=== PATIENT | female | born 1960 | race Caucasian/White ===

== ENCOUNTER → 2017-06-02 20:22 | Outpatient (CLI) | payer OTHER, SELFPAY ==
[2017-06-08 15:48] LABS: HPV Reflexed? NOT INDICATED
== END ==
PROVIDERS: Visit Provider Obstetrics & Gynecology
DX: Z12.4 Encounter for screening for malignant neoplasm of cervix (principal)
CPT/HCPCS: 88175; G0145

== ENCOUNTER → 2018-08-30 17:30 | Outpatient (CLI) | payer OTHER, SELFPAY ==
--- NOTE | 2018-08-30 16:30 | BI_ITS ---
MAMMOGRAPHY - BILATERAL SCREENING REASON FOR EXAM: Female, 58 years old. Routine annual screening examination. PERTINENT HISTORY: Non-contributory. TECHNIQUE: Digital bilateral breast aquiles (3D mammographic acquisition) in the CC and MLO projections. 2-D mediolateral oblique (MLO) and craniocaudad (CC) views of both breasts were obtained. CAD: Full Field Digital Mammography with Computer Added Detection was performed. COMPARISON: Comparison is made with prior study dated April 06, 2017 and January 24, 2016. FINDINGS: Breast Composition: The breasts are heterogeneously dense, which may obscure small masses. There are no dominant masses or suspicious calcifications. No other significant abnormalities are identified. There has been no significant change since the prior study. BI/SCREENING MAMM (CAD), BILAT IMPRESSION: Stable bilateral screening mammogram. Yearly follow-up mammogram recommended. (A) ASSESSMENT CATEGORY: BIRADS Category 1: Negative. A letter regarding these results will be sent to the patient by the facility within 30 days. Approximately 10% of breast cancers are not detected by mammography. A normal mammogram should not delay biopsy of a clinically suspicious abnormality. [id number] Electronically Signed: Chip Arechiga, at 8:33 EDT , Service support ,
== END ==
PROVIDERS: Referring Provider Obstetrics & Gynecology; Visit Provider Obstetrics & Gynecology
DX: Z12.31 Encounter for screening mammogram for malignant neoplasm of breast (principal)
CPT/HCPCS: 77063; 77067

== ENCOUNTER → 2018-08-31 17:20 | Outpatient (CLI) | payer OTHER, SELFPAY ==
[2018-09-05 14:38] LABS: HPV Reflexed? NOT INDICATED
== END ==
PROVIDERS: Referring Provider Obstetrics & Gynecology; Visit Provider Obstetrics & Gynecology
DX: N39.0 Urinary tract infection, site not specified (principal); Z12.4 Encounter for screening for malignant neoplasm of cervix
CPT/HCPCS: 87086; 87088; 88175; G0145

== ENCOUNTER → 2020-03-20 07:07 | Outpatient (CLI) | payer OTHER, SELFPAY ==
--- NOTE | 2020-03-19 16:23 | BI_ITS ---
MAMMOGRAPHY - BILATERAL SCREENING REASON FOR EXAM: Female, 60 years old. Routine annual screening examination. PERTINENT HISTORY: Breast survey exam TECHNIQUE: Digital bilateral breast mia (3D mammographic acquisition) in the CC and MLO projections. 2-D mediolateral oblique (MLO) and craniocaudad (CC) views of both breasts were obtained. CAD: Full Field Digital Mammography with Computer Added Detection was performed. COMPARISON: 08/30/2018 FINDINGS: Breast Composition: Dense There are no dominant masses or suspicious calcifications. No other significant abnormalities are identified. BI/SCREEN MAMM (CAD) W/MIA BILAT IMPRESSION: Stable bilateral screening mammogram. Yearly follow-up mammogram recommended. (A) ASSESSMENT CATEGORY: BIRADS Category 1: Negative. A letter regarding these results will be sent to the patient by the facility within 30 days. Approximately 10% of breast cancers are not detected by mammography. A normal mammogram should not delay biopsy of a clinically suspicious abnormality. [id number] Electronically Signed: Francisco Lomas, at 17:55 EST Tel , Service support ,
== END ==
PROVIDERS: Referring Provider Student in an Organized Health Care Education/Training Program; Visit Provider Student in an Organized Health Care Education/Training Program
DX: Z12.31 Encounter for screening mammogram for malignant neoplasm of breast (principal)
CPT/HCPCS: 77063; 77067

== ENCOUNTER → 2020-04-02 | Outpatient (CLI) | payer OTHER, SELFPAY ==
[2020-04-07 16:38] LABS: HPV APTIMA, High Risk Negative (Negative); HPV Reflexed? NOT INDICATED
== END | disposition home or self-care (01) ==
LOC: LABSPEC 04-03 08:44
PROVIDERS: Visit Provider Student in an Organized Health Care Education/Training Program
DX: Z12.4 Encounter for screening for malignant neoplasm of cervix (principal)
CPT/HCPCS: 88175; G0145

== ENCOUNTER 2020-06-27 15:35 | Outpatient (RCR) | payer OTHER, SELFPAY ==
[2020-06-28] MEDS: COVID-19 VACC, MRNA(PFIZER)/PF 30 MCG/0.3 ML SYRINGE IM (12:36)
[2020-07-18] MEDS: COVID-19 VACC, MRNA(PFIZER)/PF 30 MCG/0.3 ML SYRINGE IM (18:51)
== END 2020-10-01 23:59 ==
LOC: IMMUN 15:35
PROVIDERS: PCP Family Medicine; Referring Provider Family Medicine; Visit Provider Family Medicine
DX: Z23 Encounter for immunization (principal)
CPT/HCPCS: 0001A; 0002A; 91300

== ENCOUNTER 2021-06-30 16:01 | Outpatient (CLI) | payer OTHER, SELFPAY ==
--- NOTE | 2021-06-30 16:04 | BI_ITS ---
MAMMOGRAPHY - BILATERAL SCREENING REASON FOR EXAM: Female, 61 years old. Routine annual screening examination. PERTINENT HISTORY: Non-contributory. TECHNIQUE: Digital bilateral breast mia (3D mammographic acquisition) in the CC and MLO projections. 2-D mediolateral oblique (MLO) and craniocaudad (CC) views of both breasts were obtained. CAD: Full Field Digital Mammography with Computer Added Detection was performed. COMPARISON: Comparison is made with prior study dated number 2019 and 08/30/2018. FINDINGS: Breast Composition: The breasts are heterogeneously dense, which may obscure small masses. There are no dominant masses or suspicious calcifications. No other significant abnormalities are identified. There has been no significant change since the prior study. BI/SCRN MAMM (CAD)W/MIA BILAT IMPRESSION: Stable bilateral screening mammogram. Yearly follow-up mammogram recommended. (A) ASSESSMENT CATEGORY: BIRADS Category 1: Negative. A letter regarding these results will be sent to the patient by the facility within 30 days. Approximately 10% of breast cancers are not detected by mammography. A normal mammogram should not delay biopsy of a clinically suspicious abnormality. [id number] Electronically Signed: Chip Arechiga MD at 8:08 EST ,
== END 2021-06-30 23:59 | disposition home or self-care (01) ==
LOC: OPBI 16:02
PROVIDERS: Visit Provider Student in an Organized Health Care Education/Training Program
DX: Z12.31 Encounter for screening mammogram for malignant neoplasm of breast (principal)
CPT/HCPCS: 77063; 77067

== ENCOUNTER 2021-07-25 16:18 | Outpatient (CLI) | payer OTHER, SELFPAY ==
[2021-08-05 17:07] LABS: HPV APTIMA, High Risk Negative (Negative)
== END 2021-07-25 23:59 | disposition home or self-care (01) ==
LOC: LABSPEC 16:19
PROVIDERS: Visit Provider Student in an Organized Health Care Education/Training Program
DX: Z12.4 Encounter for screening for malignant neoplasm of cervix (principal)
CPT/HCPCS: 87624; 88175; G0145

== ENCOUNTER 2021-12-19 17:45 | Emergency (ER) | payer OTHER, SELFPAY ==
[2021-12-19 17:46] VITALS: BP 150/66; PULSE 87; RESP 16; TEMP 36.7; BMI 24.0
--- NOTE | 2021-12-19 19:58 | EDS_ITS ---
HPI History of Present Illness Chief Complaint: Headache Informant: patient Narrative Narrative: 61-year-old female arriving to the emergency department chief complaint of headache. She notes that symptoms began around 1500 hrs. She describes it as upper neck pain that wraps towards the front of her head. She states that when the pain comes it makes her weak all over. She denies any arm leg speech or vision symptoms. She states it is coming and going. She took Ecotrin before coming to emergency. She states that she was extremely and her blood pressure was up to the 150 systolic range. She denies any fever. She notes a history of fibromyalgia GERD and neck pain from prior injury. [facility] Medical History (Updated 12/19/21 @ 21:[address] Jhony Griffith DO) Fibromyalgia GERD (gastroesophageal reflux disease) Allergy/AdvReac Type Severity Reaction Status Date / Time amoxicillin Allergy Rash Verified 12/19/21 17:53 cefaclor [From Ceclor] Allergy Anaphylaxis Verified 12/19/21 17:53 cephalexin [From Keflex] Allergy Hives Verified 12/19/21 17:53 sertraline [From Zoloft] Allergy Rash Verified 12/19/21 17:53 acetaminophen [From Tavist] AdvReac PT UNSURE Verified 12/19/21 17:53 OF REACTION clemastine [From Tavist] AdvReac PT UNSURE Verified 12/19/21 17:53 OF REACTION pseudoephedrine [From Tavist] AdvReac PT UNSURE Verified 12/19/21 17:53 OF REACTION Social History (Updated 12/19/21 @ 20:[address] Jhony Griffith DO) current gender identity: female Smoking Status: Never smoker substance use type: does not use ROS ROS ED Constitutional Constitutional ED: Denies chills, fever(s) or weight loss Eyes Eyes: Denies change in vision or diplopia ENT ENT ED: Denies ear pain, rhinorrhea or sore throat Cardiovascular Cardiovascular: Denies chest pain, orthopnea, palpitations or racing heartbeat Respiratory/Chest Respiratory/Chest: Denies cough, dyspnea or orthopnea Gastrointestinal Gastrointestinal: Denies abdominal pain, diarrhea, nausea or vomiting Genitourinary Genitourinary ED: Denies dysuria, hematuria or urinary frequency Musculoskeletal Musculoskeletal: Reports neck pain; Denies arthralgias or myalgias Integumentary Denies abscess or rash Neurologic Neurologic: Reports headache(s) and weakness Psychiatric Psychiatric: Denies anxiety, depression, suicidal ideation or suicidal thoughts Endocrine Endocrinology: Denies polydipsia, polyphagia or polyuria Allergic/Immunologic Allergic/Immunologic ED: Denies mouth swelling, tongue swelling or urticaria EXAM Physical Exam Const Vital Signs: 12/19/21 17:46 12/19/21 17:46 12/19/21 20:24 Temperature 98.0 F 98.0 F 98.4 F Temperature Source Temporal Temporal Oral Pulse Rate 87 87 81 Respiratory Rate 16 16 Blood Pressure 150/66 H 150/66 H 142/73 H Blood Pressure Mean 94 94 96 Positive well nourished and well developed General Appearance ED: well developed HEENT Reports normocephalic, head/scalp atraumatic and moist mucous membranes Eyes PERRL and EOMs intact bilaterally Neck no lymphadenopathy, supple and no JVD Resp normal respiratory effort and clear to auscultation bilaterally Cardio regular rate, regular rhythm and no murmurs GI normal to inspection, nondistended, normoactive bowel sounds and non-tender Palpation: soft Back/Spine no CVA tenderness and normal ROM Extremity normal to inspection Extremity Narrative: NIH 0 General Extremety ED: Negative for edema General Extremity: Negative for edema Neuro oriented x3 and CN's II-XII intact bilaterally Sensorium / Orientation: alert Motor Exam: strength 5/5 throughout Psych mental status grossly normal Mood & Affect: Negative for depressed or tearful Skin no rashes or lesions noted and no wounds MDM MDM MDM Narrative Medical decision making narrative: CT the brain was obtained and is negative. She received a dose of Toradol. The description of the headache is more consistent with a tension headache. She notes that 2 days ago she was pushing family member on the swing and wonders if she did something with her upper back musculature and her fibromyalgia. At this point I think the patient can be discharged home. Return if worsening or concerns Radiography Diagnostic Testing: Clinical Impression(s) from Imaging Studies Brain CT 12/19/21 20:35 IMPRESSION: Negative Brain CT without contrast. Electronically Signed: Malachi Fontenot DO at 21:46 EDT , Discharge Plan Triage Chief Complaint: Headache ED Provider: Jhony Griffith Dx/Rx/DC Orders Clinical Impression: Acute tension headache Instructions: ED Headache, Tension Primary Care Provider: Abdirashid Ku Referrals: Abdirashid Ku DO [Primary Care Provider] - As Needed Disposition Disposition: Home, Self Care
[2021-12-19] MEDS: Ketorolac 60 MG/2 ML Vial IM (20:23)
[2021-12-19 20:24] VITALS: BP 142/73; PULSE 81; TEMP 36.9
--- NOTE | 2021-12-19 20:35 | CT_ITS ---
INDICATION: cephalgia EXAMINATION: CT BRAIN - CT Head or Brain W/O Contrast Injection TECHNIQUE: Multiple axial images were obtained of the head without intravenous contrast. A radiation dose optimization technique was used for this scan. IV Contrast dosage and agent: None. COMPARISON: None. FINDINGS: BRAIN PARENCHYMA: No intra- or extra-axial hemorrhage. No intracranial mass or mass effect. Bronson/white matter differentiation is maintained and there is no blurring of the basal ganglia. There is no hyperdense vessel. Posterior fossa structures are unremarkable. CSF SPACES: Appropriate for age. No hydrocephalus. Basal cisterns are patent. CALVARIUM, SKULL BASE, PARANASAL SINUSES AND MASTOID AIR CELLS: Clear. No discrete lytic or blastic abnormalities. ORBITS: Both globes, extraocular muscles, optic nerves and retrobulbar fat appear unremarkable. ASPECTS Score for Acute Strokes: 10 CT/Brain/Head without Contrast IMPRESSION: Negative Brain CT without contrast. Electronically Signed: Malachi Fontenot DO at 21:46 EDT ,
== END 2021-12-19 21:58 | disposition home or self-care (01) ==
PROVIDERS: Emergency Provider Emergency Medicine; PCP Student in an Organized Health Care Education/Training Program; Visit Provider Emergency Medicine
DX: G44.209 Tension-type headache, unspecified, not intractable (principal); M79.7 Fibromyalgia
CPT/HCPCS: 70450; 96372; 99281

== ENCOUNTER → 2022-05-11 | Outpatient (CLI) | payer OTHER, SELFPAY ==
--- NOTE | 2022-05-11 16:37 | STRESSREP ---
Stress Test Report Exercise myocardial perfusion stress test. 62-year-old lady with a history of chest pain Stress protocol: Resting EKG demonstrates normal sinus rhythm with a rate of 77 bpm resting blood pressure is 142/86 mmHg. The patient exercised according to the regular Akash protocol for a total duration of 8 minutes attaining a maximum heart rate of 160 bpm which was 101% of max impacted heart rate the maximum workload was 10.1 metabolic equivalents. At rest there were no ST or T wave changes noted suggest ischemia and at peak exercise upsloping ST changes only were noted which did not meet the criteria for ischemia. No clinical angina was noted the test was terminated due to the target heart rate being achieved. The peak blood pressure was 148/82 mmHg. Rate-pressure product was 22,000. Myocardial perfusion protocol. 11.3 mCi of technetium 99m sestamibi was injected at rest. The patient exercised according to regular Akash protocol for total duration of 8 minutes and at peak exercise 33.8 mCi of technetium 99m sestamibi was injected stress images were obtained stress and rest images were reconstructed in comparing the short axis vertical long and horizontal long axis. Gated images were also obtained. Perfusion SPECT analysis: Review of the stress images demonstrate normal uptake of tracer noted in all areas of the myocardium. The resting images similarly demonstrate normal uptake of tracer noted in all areas of the myocardium. No areas of reversibility are noted to suggest ischemia no previous infarct was noted. Gated SPECT analysis: The gated ejection fraction is 73%. Conclusion: Normal exercise myocardial perfusion stress test at a high workload. Preserved ejection fraction.
== END | disposition home or self-care (01) ==
LOC: CVS 06:34
PROVIDERS: PCP Student in an Organized Health Care Education/Training Program; Visit Provider Internal Medicine Cardiovascular Disease
DX: R07.89 Other chest pain (principal)
CPT/HCPCS: 78452; 93017; A9500; A4216

== ENCOUNTER → 2022-05-25 | Outpatient (CLI) | payer OTHER, SELFPAY ==
--- NOTE | 2022-05-25 13:18 | ECHOD_ITS ---
Reason For Study: MVP Procedure This was a 2D Doppler, Color Flow transthoracic echocardiogram. Exam performed in department. Left Ventricle Normal LV size. Left ventricular systolic function is normal. Stage 1 diastolic dysfunction. The estimated ejection fraction is 60 %. No regional wall motion abnormalities noted. Right Ventricle Normal RV size. Normal systolic function. Atria Normal left atrium. Normal right atrium. Mitral Valve Normal mitral valve. Mild (1+) eccentric mitral valve insufficiency. Tricuspid Valve Normal tricuspid valve. Mild (1+) tricuspid valve insufficiency. Pulmonary artery systolic pressure is 33 mmHg. Aortic Valve Trisinus/trileaflet aortic valve. Pulmonic Valve Normal pulmonic valve. Great Vessels Normal aortic root. The pulmonary artery is normal size. Normal inferior vena cava. Pericardium/Pleural No pericardial effusion. MMode/2D Measurements & Calculations LVIDd: 4.5 cm IVSd: 0.69 cm LVOT diam: 2.0 cm LVIDs: 3.1 cm LVPWd: 0.81 cm LVOT area: 3.1 cm2 RVDd: 2.8 cm FS: 30.3 % Ao root diam: 2.8 cm LAV(MOD-bp): 44.5 ml LVAd ap4: 24.1 cm2 LAV(MOD-bp) Indexed: 29.2 ml/m2 LVLd ap4: 6.8 cm LAV(MOD-sp2): 48.2 ml EDV(MOD-sp4): 70.1 ml LAV(MOD-sp4): 39.0 ml EDV(sp4-el): 73.0 ml LVAs ap4: 14.7 cm2 LVLs ap4: 5.6 cm ESV(MOD-sp4): 32.2 ml ESV(sp4-el): 32.8 ml EF(MOD-sp4): 54.1 % EF(sp4-el): 55.0 % LVAd ap2: 24.6 cm2 SV(MOD-sp4): 37.9 ml SV(MOD-sp2): 44.6 ml LVLd ap2: 7.1 cm EDV(MOD-sp2): 74.6 ml EDV(sp2-el): 72.0 ml LVAs ap2: 14.3 cm2 LVLs ap2: 5.9 cm ESV(MOD-sp2): 30.0 ml ESV(sp2-el): 29.5 ml EF(MOD-sp2): 59.8 % SV(sp4-el): 40.2 ml LA dimension(2D): 3.3 cm LA A4 area: 15.4 cm2 RA A4 area: 14.0 cm2 Time Measurements MV dec time: 0.15 sec Doppler Measurements & Calculations MV E max flora: 68.2 cm/sec MV V2 max: 92.1 cm/sec MV A max flora: 87.6 cm/sec MV max P.4 mmHg MV dec slope: 471.4 cm/sec2 MV E/A: 0.78 MV V2 mean: 56.2 cm/sec MV mean P.5 mmHg MV V2 VTI: 28.5 cm MVA(VTI): 2.7 cm2 Ao V2 max: 135.8 cm/sec LV V1 max: 108.3 cm/sec MR max flora: 622.1 cm/sec Ao max P.4 mmHg LV V1 max P.7 mmHg MR max P.8 mmHg Ao V2 mean: 98.4 cm/sec LV V1 mean P.5 mmHg MR mean flora: 478.4 cm/sec Ao mean P.3 mmHg LV V1 mean: 74.4 cm/sec MR mean P.3 mmHg Ao V2 VTI: 35.1 cm LV V1 VTI: 24.6 cm MR VTI: 234.8 cm AV (velocity ratio): 0.70 VANESSA(I,D): 2.2 cm2 VANESSA(V,D): 2.5 cm2 SV(LVOT): 76.7 ml PA V2 max: 95.6 cm/sec TR max flora: 273.8 cm/sec PA V2 mean: 67.3 cm/sec TR max P.0 mmHg ECHO/Echo Complete Interpretation Summary Normal LV size. Left ventricular systolic function is normal. Stage 1 diastolic dysfunction. Pulmonary artery systolic pressure is 33 mmHg. Mild (1+) eccentric mitral valve insufficiency. The estimated ejection fraction is 60 %. Ordering Physician: Sloan Palacios Referring Physician: Sloan Palacios Performed By: Samanta Shabazz RCS
== END | disposition home or self-care (01) ==
LOC: CVS 13:16
PROVIDERS: PCP Student in an Organized Health Care Education/Training Program; Referring Provider Internal Medicine Cardiovascular Disease; Visit Provider Internal Medicine Cardiovascular Disease
DX: R07.9 Chest pain, unspecified (principal); R00.2 Palpitations; I49.8 Other specified cardiac arrhythmias; I34.0 Nonrheumatic mitral (valve) insufficiency
CPT/HCPCS: 93306

== ENCOUNTER → 2022-12-23 | Outpatient (CLI) | payer OTHER, SELFPAY ==
[2022-12-23 15:57] LABS: Erythrocyte Sedimentation Rate 6 mm/hr (0-30)
[2022-12-23 15:59] LABS: Absolute Lymphocyte Count 2.15 X10^3/uL (0.83-4.51); Absolute Neutrophil Count 5.7 X10^3/uL (2.0-7.7); Basophil# 0.06 X10^3/uL; Basophil% 0.7 % (0-1); Eosinophil# 0.09 X10^3/uL; Lymphocyte # 2.15 X10^3/ul (0.83-4.51); Mean Corp Hgb Conc 34.2 g/dL (32-36); Mean Corpuscular Hgb 31.3 pg (27.0-32.0); Mean Corpuscular Volume 91.3 fL (81-99); Mean Platelet Vol. 9.8 fl (6.2-12.0); Monocyte# 0.55 X10^3/uL; Monocyte% 6.4 % (0-10); NRBC Flagged by Analyzer 0 % (0-5); Neutrophil # 5.71 X10^3/uL (2.7-7.7); Neutrophil % 66.6 % (47-70); Platelet Count 302 K/mm3 (150-450); RBC Distribution Width CV 12.6 % (11.6-14.6); Red Blood Count 4.16 M/mm3 (4.2-5.4); White Blood Count 8.6 K/mm3 (4.4-11.0)
[2022-12-23 16:22] LABS: AST(SGOT) 22 U/L (15-37); Alanine Aminotransfer ALT/SGPT 26 U/L (13-56); Albumin, Serum 4.1 g/dL (3.2-5.0); Alkaline Phosphatase 81 U/L (45-117); Anion Gap 6 (5-15); BUN 10 mg/dL (7-18); BUN/Creat Ratio 11.2 RATIO (10-20); CRP < 2.90 mg/L (0.0-3.0); Calcium,Total 9.4 mg/dL (8.5-10.1); Chloride 101 mmol/L (98-107); Creatinine, Serum 0.89 mg/dL (0.55-1.02); EST Glomerular Filtration Rate 68 mL/min (>60); Est Glom Filt Rate - Afr Amer 82 mL/min (>60); Glucose 87 mg/dL (74-106); LDH 180 U/L (84-246); Potassium 3.7 mmol/L (3.5-5.1); Protein, Total 8.1 g/dL (6.4-8.2); Sodium Level 135 mmol/L (136-145)
[2022-12-25 12:09] LABS: Anti-Centromere B Ab <0.2 AI (0.0-0.9); Anti-Chromatin <0.2 AI (0.0-0.9); Anti-Jo <0.2 AI (0.0-0.9); Anti-Scleroderma-70 AB <0.2 AI (0.0-0.9); Anti-dsDNA Ab <1 IU/mL (0-9); RNP Ab 0.5 AI (0.0-0.9); SJOGREN'S Anti-SS-A test < 0.2 AI (0.0-0.9); SJOGREN'S Anti-SS-B test < 0.2 AI (0.0-0.9); Smith Ab <0.2 AI (0.0-0.9)
[2022-12-28 06:06] LABS: Albumin 4.2 g/dL (2.9-4.4); Alpha-1-Globulins 0.2 g/dL (0.0-0.4); Alpha-2-Globulins 0.8 g/dL (0.4-1.0); Cytoplasmic Ab (C-ANCA) <1:20 titer (Neg:<1:20); Endomysial Antibody IgA Negative (Negative); Gamma Globulin 1.3 g/dL (0.4-1.8); Immunoglobulin A 63 mg/dL (87-352); Immunoglobulin E 21 IU/mL (6-495); Immunoglobulin G 1220 mg/dL (586-1602); Immunoglobulin M 67 mg/dL (26-217); PROEL- TOTAL PROTEIN 7.6 g/dL (6.0-8.5); Perinuclear Ab (P-ANCA) <1:20 titer (Neg:<1:20); t-Transglutaminase IgA <2 U/mL (0-3)
== END | disposition home or self-care (01) ==
LOC: LAB 14:45
PROVIDERS: PCP Student in an Organized Health Care Education/Training Program; Referring Provider Internal Medicine Gastroenterology; Visit Provider Internal Medicine Gastroenterology
DX: R10.9 Unspecified abdominal pain (principal)
CPT/HCPCS: 36415; 80053; 82784; 82785; 83516; 83615; 84165; 85025; 85652; 86140; 86225; 86235; 86255; 86256; 86334

== ENCOUNTER 2023-02-11 08:54 | Day surgery (SDC) | payer OTHER, SELFPAY ==
[2023-02-11] VITALS (7 sets, daily range): BP systolic 106–163; BP diastolic 61–95; PULSE 70–88; RESP 14–16; TEMP 36.2–37.7; O2SAT 100; BMI 25.8
[2023-02-11] MEDS: Lactated Ringers 1,000 ML 15 ML IV (09:29)
--- NOTE | 2023-02-11 09:54 | PCM.HP.BLA ---
History and Physical Date of Admission: 02/11/23 62 F who presents to the office today for PMH fibromyalgia, focal dystonia, heart murmur, insomnia, PAC, anxiety.? PSH two c-sections. *BGI established 12.17. with GERD and chest pain for many years; esomeprazole 40mg QD helpful but has breakthrough symptoms particularly triggered by stress. Constipation with abdominal pain/bloating are also a difficulty. Reports that she has an abnormal anatomy because ?everything is squished and tight? and that her gallbladder in not in the correct location. Recommend EGD and colonoscopy. ? Biochemical CBC, ESR, CMP, LDH, CRP, CAREY comp, GAME, ANCA, ALTHEA, celiac not performed. ? Stool calprotectin, lactoferrin not performed. ? EGD and colonoscopy scheduled then cancelled without being rescheduled. OV 12.23.22 continues to have a lot of bloating and gas to varying severity. She admits to eating a lot and too quickly. GasX, beano ineffective. Unsure of last screening colonoscopy. ROS Const Constitutional: No anorexia, fatigue, fever(s), weight change or sleep problems Eyes Eyes: No change in vision ENT ENT: No abnormal hearing, difficulty swallowing, mouth lesions, tongue swelling or throat swelling Resp Respiratory: No cough or shortness of breath Cardio Cardiology: No chest pain at rest, chest pain with exertion, shortness of breath or dyspnea on exertion Gastro GI: No difficulty swallowing Genitourinary-Female: No difficulty urinating or burning urination Musc Musculoskeletal: No joint pain, joint swelling, muscle weakness or decreased muscle mass Skin Skin: No hair loss in leg, yellowing of the eye, itchy eyes, rash, skin ulcer or skin swelling Neuro Neurology: No abnormal hearing, abnormal movements, confusion, unsteady gait/balance or memory loss Psych Psychiatric: No anxiety, No confusion and No memory loss Endo Endocrine: No fatigue or weight change Aller/Imm Allergy/Immunologic: No itchy eyes, throat swelling or tongue swelling Yasir/Lymp Hematologic/Lymphatic: No easy bleeding, easy bruising or enlarged lymph nodes Exam Const General: cooperative and comfortable Nutritional Appearance: average body habitus and well nourished [facility] Head: normal to inspection Ears: hearing grossly normal bilaterally Nose: external nose normal Face and sinus: normal facial exam Mouth: oral mucosae normal Throat: posterior oropharynx normal Eyes General: appearance normal, both eyes and all related structures Neck Neck: normal visual inspection Chest Chest palpation & inspection: normal inspection of the chest and normal palpation of entire chest wall Resp Effort & Inspection: normal respiratory effort Auscultation: Bilateral: Clear to Auscultation Cardio Palpation: normal PMI Rate: regular rate Rhythm: regular rhythm GI Inspection: normal to inspection Auscultation: normal bowel sounds Percussion: normal to percussion Palpation: no hepatosplenomegaly Skin General: no rashes or lesions noted Neuro General: patient alert Extrem General: normal to inspection Psych Affect: normal affect Quality Reporting Tobacco Screening ([facility] 138) Smoking Status: Never smoker Assessment and Plan Assessment and Plan (1) GERD (gastroesophageal reflux disease): Status: Inactive Qualifiers: Esophagitis presence: with esophagitis Esophagitis bleeding: without hemorrhage Qualified Code(s): K21.00 - Gastro-esophageal reflux disease with esophagitis, without bleeding Comment: PER PT NOT CONTROLLED ON MEDS Plan: Gastroesophageal reflux disease controlled on Nexium therapy. She should undergo an upper endoscopy for evaluation of Mendoza's esophagus, structural changes and functional changes of the upper GI tract. (2) Abdominal pain: Status: Inactive Qualifiers: Abdominal location: generalized Qualified Code(s): R10.84 - Generalized abdominal pain Plan: . Abdominal pain thought to be secondary to IBS. We will evaluate her upper GI tract and lower GI tract and possibly to small bowel capsule endoscopy. We also do biochemical analysis and stool testing. (3) Screening for colon cancer: Status: Inactive Plan: She will undergo screening colonoscopy. We will also evaluate her lower GI tract to look for any mucosal changes would lead to the diagnosis why she has abdominal pain and bloating. She was explained alternatives, risk and benefits include not withstanding bleeding, infection, sepsis, perforation, need for emergent surgery . She have an ASA of 1. Coding I have examined the patient and the H&P has been reviewed. There are no clinical changes since date of exam.
--- NOTE | 2023-02-11 10:00 | EGD_PTH ---
PATIENT: JASS WHITING LOC: EN U#:[id number] AGE/SX: 63/F ROOM: RE02/11/[address]: Dr. Rico Mckeon DO : 1960 BED: DIS: 02/11/2023 SPEC #: [id number] RECD: 02/11/23 12:10 STATUS: LISA REQ #: [id number] YAMINI: 02/11/23 10:[address]: Rico Mckeon DEPT: SURGICAL PATHOLOGY RECD BY: Delfina Dimas ENTERED: 02/11/23 12:58 SP TYPE: EGD BIOPSY OTHR DR: Dr. Abdirashid Ku DO Tissues: A - Duodenum, NOS B - Gastric mucous membrane C - Esophagus, NOS Procedures: Special Stain Group II Surgery Specimen Level IV Alcian Blue/PAS (control) HEADER OPERATION: Colonoscopy, EGD with biopsy PRE-OP DIAGNOSIS: GERD, abdominal pain TISSUE SUBMITTED: A - Duodenum biopsy, B - Gastric body biopsy, C - Distal esophagus biopsy MICROSCOPIC DIAGNOSIS A. Duodenum, biopsy: Fragments of duodenal mucosa with gastric metaplasia and chronic inflammation. B. Gastric body, biopsy: Mild gastritis. See microscopic description and comment. C. Distal esophagus, biopsy: Fragments of gastric mucosa with chronic inflammation. Intestinal metaplasia (goblet cell metaplasia) not identified. See comment. SJ:nitin 02/12/2023 COMMENT B. The results of immunohistochemistry for Helicobacter pylori will be reported separately ([id number]). C. Alcian blue/PAS stain with matched control is used in the evaluation of the specimen. MICROSCOPIC DESCRIPTION Slides are reviewed. B. The specimen shows fragments of gastric mucosa with chronic inflammatory cell infiltrates in the lamina propria consisting of lymphocytes and plasma cells, consistent with mild chronic gastritis. GROSS DESCRIPTION A - Received in fixative is one container labeled with the patient's name and designated duodenum biopsy. The specimen consists of multiple irregular fragments of light mackenzie soft tissue that in aggregate measure 1.5 x 0.3 x 0.1 cm. The specimen is totally submitted in one cassette. B - Received in fixative is one container labeled with the patient's name and designated gastric body. The specimen consists of two irregular fragments of light mackenzie soft tissue that in aggregate measure 0.5 x 0.3 x 0.1 cm. The specimen is totally submitted in one cassette. C - Received in fixative is one container labeled with the patient's name and designated distal esophagus biopsy. The specimen consists of two irregular fragments of light mackenzie soft tissue that in aggregate measure 0.5 x 0.3 x 0.1 cm. The specimen is totally submitted in one cassette. / AM:nitin 02/11/2023 TC:3 CPT: 52752 x3, 12706
--- NOTE | 2023-02-11 10:00 | IMM_PTH ---
PATIENT: JASS WHITING LOC: EN U#:[id number] AGE/SX: 63/F ROOM: RE02/11/[address]: Dr. Rico Mckeon DO : 1960 BED: DIS: 02/11/2023 SPEC #: [id number] RECD: 02/11/23 13:30 STATUS: LISA REQ #: [id number] YAMINI: 02/11/23 10:[address]: Rico Mckeon DEPT: IMMUNOHISTOCHEMISTRY RECD BY: Rosalia Rios ENTERED: 02/11/23 13:30 SP TYPE: IMMUNO OTHR DR: Dr. Abdirashid Ku DO Tissues: B - Stomach, NOS Procedures: H Pylori (initial) PHYSICIAN & INSTITUTION [place] [id number] SPECIMEN INFORMATION: Tissue Source: B - Gastric body Clinical Info: GERD, abdominal pain Specimen Number: [id number] CPT code: 33939 METHODOLOGY: Deparaffinized sections of prefer/formalin-fixed tissue or PAP/DQ stained slides are incubated with monoclonal/polyclonal antibodies/oligonucleotide probes. Localization is made via biotin free immunoperoxidase method. Appropriate controls are performed and reacted as expected. Results on target cell population are indicated in the following table: RESULTS: ANTIBODY / CLONE RESULT Block B H Pylori (polyclonal) negative These tests were developed and their performance characteristics determined by [facility]. They may not have been cleared or approved by the U.S. Food and Drug Administration. The FDA has determined that such clearance or approval is not necessary. The above immunohistochemical/dualISH markers are ordered and reviewed by the Pathologist. INTERPRETATION: B. Gastric body, biopsy: Negative for Helicobacter pylori organisms. SJ:nitin 02/12/2023
--- NOTE | 2023-02-11 10:31 | OP.EGD_ITS ---
Patient Name: Jocelyn Rasmussen Procedure Date: 02/11/2023 9:52 AM Date of : 1960 Age: 63 Procedure: Upper GI endoscopy Indications: Epigastric abdominal pain, Functional Dyspepsia, Heartburn Providers: Rico Mckeon DO Referring MD: Rico Mckeon DO Medicines: Monitored Anesthesia Care Patient Profile: This is a 63 year old female. Refer to note in patient chart for documentation of history and physical. Patient has symptoms of chronic dyspepsia and chronic heartburn. Complications: No immediate complications. Procedure: Pre-Anesthesia Assessment: - Prior to the procedure, a History and Physical was performed, and patient medications and allergies were reviewed. The patient is competent. The risks and benefits of the procedure and the sedation options and risks were discussed with the patient. All questions were answered and informed consent was obtained. Patient identification and proposed procedure were verified by the physician in the pre-procedure area. Mental Status Examination: alert and oriented. Airway Examination: normal oropharyngeal airway and neck mobility. Respiratory Examination: clear to auscultation. CV Examination: normal. Prophylactic Antibiotics: The patient does not require prophylactic antibiotics. Prior Anticoagulants: The patient has taken no anticoagulant or antiplatelet agents. ASA Grade Assessment: II - A patient with mild systemic disease. After reviewing the risks and benefits, the patient was deemed in satisfactory condition to undergo the procedure. The anesthesia plan was to use monitored anesthesia care (MAC). Immediately prior to administration of medications, the patient was re-assessed for adequacy to receive sedatives. The heart rate, respiratory rate, oxygen saturations, blood pressure, adequacy of pulmonary ventilation, and response to care were monitored throughout the procedure. The physical status of the patient was re-assessed after the procedure. After obtaining informed consent, the endoscope was passed under direct vision. Throughout the procedure, the patient's blood pressure, pulse, and oxygen saturations were monitored continuously. The Colonoscope was introduced through the mouth, and advanced to the second part of duodenum. The upper GI endoscopy was accomplished without difficulty. The patient tolerated the procedure well. Scope In: 10:04:18 AM Scope Out: 10:08:12 AM Total Procedure Duration Time 0 hours 3 minutes 54 seconds Findings: The Z-line was irregular and was found 39 cm from the incisors. Biopsies were taken with a cold forceps for histology. Verification of patient identification for the specimen was done. Estimated blood loss was minimal. Patchy mildly erythematous mucosa without bleeding was found in the gastric antrum. Biopsies were taken with a cold forceps for histology. Verification of patient identification for the specimen was done. Biopsies were taken with a cold forceps for Helicobacter pylori testing. Verification of patient identification for the specimen was done. Estimated blood loss was minimal. Patchy mildly erythematous mucosa without active bleeding and with no stigmata of bleeding was found in the duodenal bulb. Biopsies were taken with a cold forceps for histology. Verification of patient identification for the specimen was done. Estimated blood loss was minimal. One 3 mm sessile polyp with no bleeding and no stigmata of recent bleeding was found in the gastric body. Impression: - Z-line irregular, 39 cm from the incisors. Biopsied. - Erythematous mucosa in the antrum. Biopsied. - Erythematous duodenopathy. Biopsied. Recommendation: - Discharge patient to home. - Resume previous diet. - Continue present medications. - Await pathology results. Procedure Code(s): --- Professional --- 00984, Esophagogastroduodenoscopy, flexible, transoral; with biopsy, single or multiple CPT copyright 2021 [employer]. All rights reserved. The codes documented in this report are preliminary and upon front end developer javascript html css review may be revised to meet current compliance requirements. Rico Mckeon DO 02/11/2023 10:31:28 AM This report has been signed electronically. Number of Addenda: 0 Note Initiated On: 02/11/2023 9:52 AM
--- NOTE | 2023-02-11 10:31 | OP.CCLET_ITS ---
02/11/2023 Abdirashid Ku Do Re : Upper GI endoscopy procedure for Jocelyn Rasmussen [place] This procedure was performed on January. My impressions and recommendations are as follows: Impressions : - Z-line irregular, 39 cm from the incisors. Biopsied. - Erythematous mucosa in the antrum. Biopsied. - Erythematous duodenopathy. Biopsied. Recommendations : - Discharge patient to home. - Resume previous diet. - Continue present medications. - Await pathology results. My findings are described in the full procedure note, which is enclosed. If I can be of further assistance, please feel free to contact me at . Sincerely, Rico Mckeon DO 02/11/2023 10:31:28 AM This report has been signed electronically.
--- NOTE | 2023-02-11 10:35 | OP.CCLET_ITS ---
02/11/2023 Abdirashid Ku Do Re : Colonoscopy procedure for Jocelyn Rasmussen [place] This procedure was performed on January. My impressions and recommendations are as follows: Impressions : - Diverticulosis in the recto-sigmoid colon, in the sigmoid colon and in the transverse colon. - The examination was otherwise normal on direct and retroflexion views. - No specimens collected. Recommendations : - Discharge patient to home. - Resume previous diet. - Continue present medications. - Repeat colonoscopy in 10 years for screening purposes. My findings are described in the full procedure note, which is enclosed. If I can be of further assistance, please feel free to contact me at . Sincerely, Rico Mckeon, 02/11/2023 10:34:48 AM This report has been signed electronically.
--- NOTE | 2023-02-11 10:35 | OP.COLON_ITS ---
Patient Name: Jocelyn Rasmussen Procedure Date: 02/11/2023 10:08 AM Date of : 1960 Age: 63 Procedure: Colonoscopy Indications: Screening for colorectal malignant neoplasm Providers: Rico Mckeon DO Referring MD: Rico Mckeon DO Medicines: Monitored Anesthesia Care Patient Profile: This is a 63 year old female. Refer to note in patient chart for documentation of history and physical. Patient has symptoms of chronic dyspepsia and chronic heartburn. Last Colonoscopy: more than 10 years ago. Complications: No immediate complications. Procedure: Pre-Anesthesia Assessment: - Prior to the procedure, a History and Physical was performed, and patient medications and allergies were reviewed. The patient is competent. The risks and benefits of the procedure and the sedation options and risks were discussed with the patient. All questions were answered and informed consent was obtained. Patient identification and proposed procedure were verified by the physician in the pre-procedure area. Mental Status Examination: alert and oriented. Airway Examination: normal oropharyngeal airway and neck mobility. Respiratory Examination: clear to auscultation. CV Examination: normal. Prophylactic Antibiotics: The patient does not require prophylactic antibiotics. Prior Anticoagulants: The patient has taken no anticoagulant or antiplatelet agents. ASA Grade Assessment: II - A patient with mild systemic disease. After reviewing the risks and benefits, the patient was deemed in satisfactory condition to undergo the procedure. The anesthesia plan was to use monitored anesthesia care (MAC). Immediately prior to administration of medications, the patient was re-assessed for adequacy to receive sedatives. The heart rate, respiratory rate, oxygen saturations, blood pressure, adequacy of pulmonary ventilation, and response to care were monitored throughout the procedure. The physical status of the patient was re-assessed after the procedure. After I obtained informed consent, the scope was passed under direct vision. Throughout the procedure, the patient's blood pressure, pulse, and oxygen saturations were monitored continuously. The Colonoscope was introduced through the anus and advanced to the cecum, identified by appendiceal orifice and ileocecal valve. The colonoscopy was performed without difficulty. The patient tolerated the procedure well. The quality of the bowel preparation was good. The terminal ileum, ileocecal valve, appendiceal orifice, and rectum were photographed. Scope In: 10:10:27 AM Scope Withdrawal Time 0 hours 6 minutes 54 seconds Scope Out: 10:23:56 AM Total Procedure Duration Time 0 hours 13 minutes 29 seconds Findings: The perianal and digital rectal examinations were normal. Scattered small-mouthed diverticula were found in the recto-sigmoid colon, sigmoid colon and transverse colon. The exam was otherwise without abnormality on direct and retroflexion views. Hemorrhoids were found on perianal exam. Impression: - Diverticulosis in the recto-sigmoid colon, in the sigmoid colon and in the transverse colon. - The examination was otherwise normal on direct and retroflexion views. - No specimens collected. Recommendation: - Discharge patient to home. - Resume previous diet. - Continue present medications. - Repeat colonoscopy in 10 years for screening purposes. Procedure Code(s): --- Professional --- G0121, Colorectal cancer screening; colonoscopy on individual not meeting criteria for high risk CPT copyright 2021 [employer]. All rights reserved. The codes documented in this report are preliminary and upon security representative review may be revised to meet current compliance requirements. Rico Mckeon DO 02/11/2023 10:34:48 AM This report has been signed electronically. Number of Addenda: 0 Note Initiated On: 02/11/2023 10:08 AM
[2023-02-16 16:09] LABS: Calprotectin, Stool 42 ug/g (0-120)
== END 2023-02-11 11:49 | disposition home or self-care (01) ==
LOC: EN 08:58 → AC 09:00
PROVIDERS: PCP Student in an Organized Health Care Education/Training Program; Referring Provider Student in an Organized Health Care Education/Training Program; Visit Provider Internal Medicine Gastroenterology
PROC: 0DJD8ZZ Inspection of Lower Intestinal Tract, Via Natural or Artificial Opening Endoscopic (ICD-10-PCS; CPT 45378; principal; 2023-02-11 09:55)
DX: Z12.11 Encounter for screening for malignant neoplasm of colon (principal); K64.9 Unspecified hemorrhoids; K57.30 Diverticulosis of large intestine without perforation or abscess without bleeding; K29.70 Gastritis, unspecified, without bleeding; K31.A0 Gastric intestinal metaplasia, unspecified; K21.00 Gastro-esophageal reflux disease with esophagitis, without bleeding; R03.0 Elevated blood-pressure reading, without diagnosis of hypertension; Z79.899 Other long term (current) drug therapy
CPT/HCPCS: 45378; 43239; 83630; 83993; 88305; 88313; 88342; J7120

== ENCOUNTER → 2023-08-17 | Outpatient (CLI) | payer BC, SELFPAY ==
--- NOTE | 2023-08-17 16:30 | BI_ITS ---
MAMMOGRAPHY - BILATERAL SCREENING REASON FOR EXAM: Female, 63 years old. Routine annual screening examination. PERTINENT HISTORY: Non-contributory. TECHNIQUE: Digital bilateral breast mia (3D mammographic acquisition) in the CC and MLO projections. 2-D mediolateral oblique (MLO) and craniocaudad (CC) views of both breasts were obtained. CAD: Full Field Digital Mammography with Computer Added Detection was performed. COMPARISON: Comparison is made with prior study dated June 30, 2021 and March 19, 2020. FINDINGS: Breast Composition: The breasts are heterogeneously dense, which may obscure small masses. There are no dominant masses or suspicious calcifications. No other significant abnormalities are identified. There has been no significant change since the prior study. BI/SCRN MAMM (CAD)W/MIA BILAT IMPRESSION: Stable bilateral screening mammogram. Yearly follow-up mammogram recommended. (A) ASSESSMENT CATEGORY: BIRADS Category 1: Negative. A letter regarding these results will be sent to the patient by the facility within 30 days. Approximately 10% of breast cancers are not detected by mammography. A normal mammogram should not delay biopsy of a clinically suspicious abnormality. [id number] Electronically Signed: Chip Arechiga MD at 8:26 EDT ,
== END | disposition home or self-care (01) ==
LOC: OPBI 08-18 07:04
PROVIDERS: PCP Student in an Organized Health Care Education/Training Program; Referring Provider Nurse Practitioner Women's Health; Visit Provider Nurse Practitioner Women's Health
DX: Z12.31 Encounter for screening mammogram for malignant neoplasm of breast (principal)
CPT/HCPCS: 77063; 77067

== ENCOUNTER → 2023-09-21 | Outpatient (CLI) | payer BC, SELFPAY | END | disposition home or self-care (01) | LOC: PSN 14:17 | PROVIDERS: PCP Student in an Organized Health Care Education/Training Program; Referring Provider Internal Medicine Cardiovascular Disease; Visit Provider Internal Medicine Cardiovascular Disease | DX: R00.2 Palpitations (principal) | CPT/HCPCS: 93225; 93226 ==

== ENCOUNTER → 2024-09-05 | Outpatient (CLI) | payer BC, SELFPAY ==
--- NOTE | 2024-09-05 16:29 | BI_ITS ---
EXAM: SCRN MAMM (CAD)W/MIA BILAT DATE: 09/05/2024 CLINICAL HISTORY: F, Age 64 y/o , SCREENING MAMMOGRAM FOR BREAST CANCER BREAST CANCER RISK ASSESSMENT: Not reported TECHNIQUE: Bilateral screening digital breast tomosynthesis with 2D and 3D images. Computer aided detection. COMPARISON: Prior exam(s) were compared FINDINGS: TISSUE DENSITY: The breast tissue is heterogenously dense, which may obscure small masses. Bilateral Breast Mammographic Findings: No suspicious masses, calcifications or other abnormalities are identified. BI/SCRN MAMM (CAD)W/MIA BILAT IMPRESSION: OVERALL FINAL ASSESSMENT: BIRADS 1 NEGATIVE RECOMMENDATION: Routine annual follow-up in 1 Year A letter with findings and recommendations will be mailed to the patient. Reading Location: [id number]
== END | disposition home or self-care (01) ==
LOC: OPBI 16:28
PROVIDERS: PCP Student in an Organized Health Care Education/Training Program; Referring Provider Nurse Practitioner Women's Health; Visit Provider Nurse Practitioner Women's Health
DX: Z12.31 Encounter for screening mammogram for malignant neoplasm of breast (principal)
CPT/HCPCS: 77063; 77067